=== PATIENT | male | born 1990 | race Caucasian/White ===

== ENCOUNTER 2017-12-16 19:17 | Inpatient (IN) ==
[2017-12-16] MEDS ORDERED: Diphtheria/Tetanus/Pertussis Vaccine Inj 0.5 ML Syringe IM ONE (19:30)
[2017-12-16] MEDS ORDERED: Sod Chloride 0.9% Inj 1,000 ML IV.CONT SCH (19:30)
[2017-12-16] MEDS ORDERED: ceFAZolin 2 GM Premix Inj 2 GM/50 ML PIGGYBACK IV.SIG ONE (19:30)
[2017-12-16] MEDS ORDERED: Morphine Inj 4 MG/ML Vial IV.PUSH ONE (19:30)
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
[2017-12-16] MEDS ORDERED: HYDROmorphone PF Inj 2 MG/ML Vial IV.PUSH ONE (21:09)
[2017-12-16] MEDS ORDERED: Sod Chloride 0.9% Inj 1,000 ML IV.SIG SCH (21:15)
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
[2017-12-16] MEDS ORDERED: Ketorolac Inj 30 MG/ML (IVP) Vial IV.PUSH PRN (21:23)
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
[2017-12-16 21:27] LABS: Baso # (Auto) 0.2 th/mm3 (0.0-0.2); Baso % (Auto) 0.6 % (0.0-2.0); Eos % (Auto) 0.1 % (0.0-4.0); Hematocrit 39.9 % (39.0-51.0); Hemoglobin 14.3 gm/dL (13.0-17.0); Lymph # (Auto) 1.5 th/mm3 (1.0-4.8); Lymph % (Auto) 5.9 % (9.0-44.0); Mean Corpuscular HGB Conc 35.8 % (32.0-36.0); Mean Corpuscular Hemoglobin 30.7 pg (27.0-34.0); Mean Corpuscular Volume 85.9 fL (80.0-100.0); Mean Platelet Volume 8.2 fL (7.0-11.0); Mono # (Auto) 1.6 th/mm3 (0.0-0.9); Mono % (Auto) 6.1 % (0.0-8.0); Neut # (Auto) 22.5 th/mm3 (1.8-7.7); Neut % (Auto) 87.3 % (16.0-70.0); Platelet Count 257 th/mm3 (150-450); Red Blood Count 4.64 mil/mm3 (4.50-5.90); Red Cell Distribution Width 12.8 % (11.6-17.2); White Blood Count 25.9 th/mm3 (4.0-11.0)
--- NOTE | 2017-12-16 21:28 | ECG ---
Date Performed: 12/16/2017 Time Performed: 19:32:26 PTAGE: 27 years EKG: SINUS TACHYCARDIA ABNORMAL RHYTHM ECG NO PREVIOUS TRACING DOCTOR: Prince Macias Interpretating Date/Time 12/16/2017 21:27:49
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
[2017-12-16 21:40] LABS: Activated Partial Thrombo Time 21.9 sec (24.3-30.1); INR 1.1 Ratio
[2017-12-16 22:03] LABS: Anion Gap 9 meq/L (5-15); Blood Urea Nitrogen 11 mg/dL (7-18); Calcium 7.3 mg/dL (8.5-10.1); Carbon Dioxide 21.7 meq/L (21.0-32.0); Chloride 110 meq/L (98-107); Glomerular Filtration Rate 73 mL/min (>89); Glucose,Random 143 mg/dL (74-106); Potassium 3.7 meq/L (3.5-5.1); Sodium 141 meq/L (136-145)
[2017-12-16 22:42] LABS: Total Protein 6.3 g/dL (6.4-8.2)
[2017-12-16] MEDS: Docusate Sodium 100 MG Capsule PO SCH (22:52)
[2017-12-16] MEDS: Morphine Inj 4 MG/ML Vial IV.PUSH PRN ×2 (22:56→23:14)
[2017-12-16] MEDS: Sod Chloride 0.9% Inj 1,000 ML IV.CONT SCH (23:15)
[2017-12-17] MEDS ORDERED: HYDROmorphone PF Inj 2 MG/ML Vial IV.PUSH PRN ×2 (03:20→06:16)
[2017-12-17] MEDS ORDERED: Chlorhexidine Gluconate 2% 1 Pack (2 Cloths) TOPICAL SCH (04:00)
[2017-12-17] MEDS ORDERED: Chlorhexidine Gluconate 2% 1 Pack (2 Cloths) TOPICAL PRN (04:00)
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
[2017-12-17] MEDS: Ketorolac Inj 30 MG/ML (IVP) Vial IV.PUSH SCH ×3 (06:35→18:11)
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
[2017-12-17] MEDS: Sod Chloride 0.9% Inj 1,000 ML IV.CONT SCH ×2 (08:13→18:50)
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
[2017-12-17] MEDS ORDERED: Enoxaparin Inj 40 MG/0.4 ML Syringe SQ ONE (09:00)
[2017-12-17] MEDS: Lidocaine 5% Patch T-DERMAL SCH (09:05)
[2017-12-17] MEDS: Docusate Sodium 100 MG Capsule PO SCH ×2 (09:05→20:53)
[2017-12-17] MEDS: Methocarbamol 500 MG Tablet PO SCH ×3 (09:08→21:43)
[2017-12-18] MEDS: Ketorolac Inj 30 MG/ML (IVP) Vial IV.PUSH SCH ×4 (00:14→18:32)
[2017-12-18] MEDS: Sod Chloride 0.9% Inj 1,000 ML IV.CONT SCH ×3 (01:13→14:25)
[2017-12-18 04:54] LABS: Baso # (Auto) 0.1 th/mm3 (0.0-0.2); Baso % (Auto) 0.6 % (0.0-2.0); Eos # (Auto) 0.3 th/mm3 (0.0-0.4); Eos % (Auto) 2.8 % (0.0-4.0); Hematocrit 37.1 % (39.0-51.0); Hemoglobin 12.6 gm/dL (13.0-17.0); Lymph # (Auto) 2.4 th/mm3 (1.0-4.8); Lymph % (Auto) 26.1 % (9.0-44.0); Mean Corpuscular HGB Conc 34.1 % (32.0-36.0); Mean Corpuscular Hemoglobin 29.9 pg (27.0-34.0); Mean Corpuscular Volume 87.9 fL (80.0-100.0); Mean Platelet Volume 7.9 fL (7.0-11.0); Mono # (Auto) 0.6 th/mm3 (0.0-0.9); Neut % (Auto) 64.5 % (16.0-70.0); Platelet Count 182 th/mm3 (150-450); Red Blood Count 4.22 mil/mm3 (4.50-5.90); Red Cell Distribution Width 12.7 % (11.6-17.2); White Blood Count 9.3 th/mm3 (4.0-11.0)
[2017-12-18 05:04] LABS: Anion Gap 9 meq/L (5-15); Blood Urea Nitrogen 7 mg/dL (7-18); Calcium 7.9 mg/dL (8.5-10.1); Carbon Dioxide 24.2 meq/L (21.0-32.0); Chloride 110 meq/L (98-107); Glomerular Filtration Rate Greater Than 89 mL/min (>89); Glucose,Random 102 mg/dL (74-106); Sodium 143 meq/L (136-145)
[2017-12-18] MEDS: Methocarbamol 500 MG Tablet PO SCH ×2 (05:38→13:19)
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
--- NOTE | 2017-12-18 06:47 | P.PNOP ---
Subjective Interval history: Still complains of left hip pain. States that his left arm is continuing to improve Physical Exam Vital signs: Vital Signs 12/17/17 08:00 12/17/17 09:00 12/17/17 11:07 Temperature 97.7 F Pulse Rate 85 78 Respiratory Rate 16 Blood Pressure 130/77 Pulse Oximetry 98 100 12/17/17 12:00 12/17/17 16:00 12/17/17 16:58 Temperature 97.6 F 97.6 F Pulse Rate 78 89 Respiratory Rate 14 16 Blood Pressure 126/72 134/87 Pulse Oximetry 97 98 97 12/17/17 20:00 12/18/17 00:00 12/18/17 04:00 Temperature 98.2 F 98.3 F 98.1 F Pulse Rate 97 H 87 74 Respiratory Rate 20 20 20 Blood Pressure 133/77 129/77 122/78 Pulse Oximetry 99 97 98 12/18/17 04:25 Temperature Pulse Rate 65 Respiratory Rate Blood Pressure Pulse Oximetry Intake & Output 12/17/17 12/17/17 12/18/17 06:59 18:59 06:59 Intake Total 2290 / 2290 200 / 200 2280 / 2280 Output Total 950 / 950 Balance 1340 / 1340 200 / 200 2280 / 2280 Weight 136.5 kg Intake: IV 2050 / 2050 200 / 200 1200 / 1200 NS Inj 1,000 ML @ 100 mls/hr IV 1000 / 1000 0 / 0 1000 / 1000 .CONT .Q10H [facility] Rx#:[id number] Ofirmev Inj 1,000 mg In 100 ml 200 / 200 200 / 200 @ 400 mls/hr IV.SIG Q6H [facility] Rx# :[id number] NS Inj 1,000 ML @ Wide Open IV. 1000 / 1000 SIG BOLUS [facility] Rx#:[id number] Ancef 2 GM Premix Inj 2 gm In 50 / 50 50 ml @ 100 mls/hr IV.SIG ONCE ONE Rx#:[id number] Oral 240 / 240 1080 / 1080 Output: Urine 950 / 950 Other: # Voids 2 Date of Last Bowel Movement 12/16/17 12/16/17 12/16/17 Weight On Admission 117.934 kg Narrative: Left upper extremity: Clean dry dressings intact. Intact sensation of her radial ulnar median nerve distributions with good capillary refills. Left lower extremity: Skin intact. Pain with movement of hip. Mild tenderness with range of motion of knee. Distally intact sensation with active dorsiflexion and plantarflexion of the foot Results - Labs CBC & Chem 7: 12/18/17 03:45 12/18/17 03:45 Laboratory Results - last 24 hr 12/18/17 12/18/17 03:45 03:45 WBC 9.3 RBC 4.22 L Hgb 12.6 L Hct 37.1 L MCV 87.9 MCH 29.9 MCHC 34.1 RDW 12.7 Plt Count 182 MPV 7.9 Neut % (Auto) 64.5 Lymph % (Auto) 26.1 [place] % (Auto) 6.0 Eos % (Auto) 2.8 Baso % (Auto) 0.6 Neut # (Auto) 6.0 Lymph # (Auto) 2.4 [place] # (Auto) 0.6 Eos # (Auto) 0.3 Baso # (Auto) 0.1 WBC Differential . Differential Comment Auto diff final Sodium 143 Potassium 4.0 Chloride 110 H Carbon Dioxide 24.2 Anion Gap 9 BUN 7 Creatinine 0.81 Estimated GFR Greater than 89 Random Glucose 102 Calcium 7.9 L - Imaging Impressions Hip CT 12/17/17 00:00 CONCLUSION: Left acetabular fractures and fracturing through the superior and inferior pubic rami. Chest X-Ray 12/17/17 06:00 CONCLUSION: No acute cardiopulmonary process. Chest X-Ray 12/18/17 06:00 CONCLUSION: 1. No acute abnormality or significant interval change. Assessment and Plan - Assessment and Plan Left acetabulum fracture N.p.o. Surgery this morning for ORIF of left acetabulum Sign consents Bedrest nonweightbearing left lower extremity Left elbow lacerations Daily dressing changes and weightbearing as tolerated
[2017-12-18] MEDS ORDERED: SODIUM CHLOR 0.9% IV.SIG SCH (07:00)
[2017-12-18] MEDS ORDERED: TRANEXAMIC ACID IV.SIG SCH (07:00)
[2017-12-18] MEDS ORDERED: Heparin - SQ 10,000 UNITS/ML Vial ONE (07:02)
[2017-12-18] MEDS ORDERED: Phenylephrine/NS 1000 MCG/10ML Syringe IV.PUSH ONE (08:00)
[2017-12-18] MEDS ORDERED: Esmolol Bolus Inj 100 MG/10 ML Vial IV.PUSH ONE (08:00)
[2017-12-18] MEDS ORDERED: Lidocaine PF 1% Inj 5 ML Syringe OTHER ONE (08:00)
[2017-12-18] MEDS ORDERED: Sugammadex Inj 200 MG/2 ML Vial IV.PUSH ONE (09:19)
[2017-12-18] MEDS: Lidocaine 5% Patch T-DERMAL SCH (09:55)
[2017-12-18] MEDS: Docusate Sodium 100 MG Capsule PO SCH (09:55)
[2017-12-18] MEDS ORDERED: Morphine Inj 4 MG/ML Vial IV.PUSH PRN (10:26)
[2017-12-18] MEDS ORDERED: Post-op Orders (for Pharmacy) OTHER STA (10:26)
[2017-12-18] MEDS ORDERED: Vancomycin Consult Pharmacy 1 EACH OTHER SCH (10:30)
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
--- NOTE | 2017-12-18 10:59 | XR ---
EXAM DATE: 12/18/2017 12:00 AM EDT AGE/SEX: 27 years / Male INDICATIONS: Post-op ORIF left acetabulum. CLINICAL DATA: This is the patient's subsequent encounter. Patient reports that signs and symptoms h ave been present for 4 - 6 days and indicates a pain score of Nonresponsive. MEDICAL/SURGICAL HISTORY: Non-responsive. Non-responsive. COMPARISON: No prior exams available for comparison. FINDINGS: Plate with screws is seen bridging the acetabular fracture in anatomic alignment. CONCLUSION: Anatomic alignment. Electronically signed by: Logan Tesfaye MD 12/18/2017 10:58 AM EDT
[2017-12-18] MEDS ORDERED: *Meperidine Inj 25 MG/ML Vial PERIprocedural Use ONLY ONE (11:13)
[2017-12-18] MEDS ORDERED: fentaNYL Citrate Inj 100 MCG/2 ML Ampul ONE (11:15)
[2017-12-18] MEDS ORDERED: *morphine SULFATE 4 MG/ML PERIprocedure ONLY ONE ×2 (11:16→11:25)
[2017-12-18] MEDS ORDERED: Metoprolol Tartrate 25 MG Tablet PO ONE (11:30)
[2017-12-18] MEDS ORDERED: Chlorhexidine Gluconate 2% 1 Pack (2 Cloths) TOPICAL ONE (11:30)
[2017-12-18] MEDS ORDERED: Sodium Chlor 0.9% Inj 500 ML IV.CONT ONE (11:30)
--- NOTE | 2017-12-18 11:58 | XR ---
EXAM DATE: 12/18/2017 11:24 AM EDT AGE/SEX: 27 years / Male INDICATIONS: Evaluate central line placement. CLINICAL DATA: This is the patient's initial encounter. Patient reports that signs and symptoms have been present for 1 day and indicates a pain score of 0/10. MEDICAL/SURGICAL HISTORY: None. None. COMPARISON: [facility] [place] 1[place] SING[place], 12/18/2017. . FINDINGS: Minimal parenchymal changes left base. Right lung clear. Left subclavian line tip is in the innominate vein SVC junction. No pneumothorax. CONCLUSION: Left line as above without pneumothorax. Tip in innominate vein SVC junction. Electronically signed by: Logan Tesfaye MD 12/18/2017 11:56 AM EDT
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
[2017-12-18] MEDS: ceFAZolin Inj 2,000 MG in Sodium Chlor 0.9% Inj 80 ML IV.SIG SCH (17:00)
[2017-12-18] MEDS: Senna/Docusate Sodium 8.6/50 MG Tablet PO SCH (20:23)
[2017-12-18] MEDS: Vancomycin Inj 1,750 MG in Sodium Chlor 0.9% Inj 500 ML IV.SIG SCH (21:59)
[2017-12-19] MEDS: Sod Chloride 0.9% Inj 1,000 ML IV.CONT SCH
[2017-12-19] MEDS: Ketorolac Inj 30 MG/ML (IVP) Vial IV.PUSH SCH ×4 (00:50→17:18)
[2017-12-19] MEDS: ceFAZolin Inj 2,000 MG in Sodium Chlor 0.9% Inj 80 ML IV.SIG SCH ×3 (00:50→17:18)
[2017-12-19 06:33] LABS: Hematocrit 33.9 % (39.0-51.0); Hemoglobin 11.7 gm/dL (13.0-17.0)
--- NOTE | 2017-12-19 06:36 | P.PNOP ---
Subjective Interval history: POD 1 s/p ORIF left acetabulum doing well. states pain but controlled. reports numbness to anterior thigh Physical Exam Vital signs: Vital Signs 12/18/17 11:07 12/18/17 11:15 12/18/17 11:30 Temperature 97.8 F 97.6 F 97.6 F Pulse Rate 107 H 110 H 102 H Respiratory Rate 14 14 14 Blood Pressure 133/77 140/92 H 148/98 H Pulse Oximetry 91 L 92 L 95 12/18/17 11:45 12/18/17 12:00 12/18/17 12:03 Temperature 97.6 F 97.6 F Pulse Rate 100 H 106 H Respiratory Rate 14 14 14 Blood Pressure 130/81 140/91 H Pulse Oximetry 95 95 12/18/17 12:15 12/18/17 15:39 12/18/17 20:00 Temperature 97.6 F 98.0 F 98.5 F Pulse Rate 102 H 90 113 H Respiratory Rate 14 24 17 Blood Pressure 136/78 126/78 149/78 H Pulse Oximetry 95 99 93 L 12/19/17 00:00 Temperature 98.6 F Pulse Rate 102 H Respiratory Rate 18 Blood Pressure 130/83 Pulse Oximetry 95 Intake & Output 12/18/17 12/18/17 12/19/17 06:59 18:59 06:59 Intake Total 2280 / 2280 1800 / 1800 Output Total 2350 / 2350 2800 / 2800 Balance 2280 / 2280 -550 / -550 -2800 / -2800 Weight 136.5 kg Intake: IV 1200 / 1200 100 / 100 NS Inj 1,000 ML @ 100 mls/hr IV 1000 / 1000 .CONT .Q10H [facility] Rx#:[id number] Ofirmev Inj 1,000 mg In 100 ml 200 / 200 @ 400 mls/hr IV.SIG Q6H [facility] Rx# :[id number] Cyklokapron Inj 2,047.5 MG In 0 / 0 NS Inj 100 ML @ 200 mls/hr IV. SIG ONCE [facility] Rx#:[id number] Ancef Inj 2,000 MG In NS Inj 80 100 / 100 ML @ 200 mls/hr IV.SIG Q8H [facility] Rx#:[id number] Oral 1080 / 1080 0 / 0 Anesthesia Amount 1700 / 1700 Output: Urine 350 / 350 Estimated Blood Loss 600 / 600 Urine Amount (Catheter) 1400 / 1400 2800 / 2800 Indwelling Urethral Catheter 1400 / 1400 2800 / 2800 Other: # Voids 1,550 1,550 Date of Last Bowel Movement 12/16/17 12/16/17 Narrative: LLE: dressings clean and dry. intact. +CKS. NVI distally - Urinary Catheter Management Indwelling Urethral Catheter Cath placed during this visit: yes Reason for continuing: Acute urinary retention Insertion date: 12/18/17 Insertion time: 10:30 Results - Labs CBC & Chem 7: 12/19/17 04:57 12/18/17 03:45 Laboratory Results - last 24 hr 12/18/17 12/19/17 07:18 04:57 Hgb 11.7 L Hct 33.9 L MTS Gel Crossmatch See Detail - Imaging Impressions Pelvis X-Ray 12/18/17 00:00 CONCLUSION: Anatomic alignment. Chest X-Ray 12/18/17 06:00 CONCLUSION: 1. No acute abnormality or significant interval change. Chest X-Ray 12/18/17 11:24 CONCLUSION: Left line as above without pneumothorax. Tip in innominate vein SVC junction. Assessment and Plan - Assessment and Plan 1) Left Acetabulum Fx s/p ORIF - POD 1 -TTWB -posterior hip precautions -CKS while in bed -daily dressing changes POD 2 with xeroform/primapore. -DVT prophylaxis -will plan for home with [facility] later this week -f/u with Anish or [facility] in 2 weeks [facility] Prescription Drug Monitoring Database has been queried and verified prior to prescribing the controlled substance. Acute pain exception. This patient has normal, predicted, physiological, and time limited response to an adverse mechanical stimulus associated with surgery, trauma, or acute illness as described in my notes. There is a lack of alternative treatment options other than to include the prescribed narcotic treatment for this condition.
--- NOTE | 2017-12-19 06:38 | P.DCO ---
- Physical Therapy Physical Therapy: Gait training, Safety evaluation Hip: Hip fracture, Protocol: Left, Posterior hip precautions Canvas Knee Splint: Remove only with PT Left Lower Extremity Weight Bearing: Toe touch weight bearing - Nursing Dressing changes: Daily dressing change, Xeroform, Coverderm/Primapore - Certification Need for Home Health services: I have seen patient Cecilio Brown on 12/19/17. My clinical findings support the need for the requested home health care services because: Need for Home Health Services: Limited mobility due to disease progression Homebound Certification: I certify that my clinical findings support that this patient is homebound because: Homebound Certification: Post-op weakness
[2017-12-19] MEDS ORDERED: HYDROmorphone PF Inj 2 MG/ML Vial IV.PUSH PRN (06:39)
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
[2017-12-19] MEDS: Senna/Docusate Sodium 8.6/50 MG Tablet PO SCH (08:46)
[2017-12-19] MEDS: Indomethacin 75 MG ER Capsule PO SCH (08:46)
[2017-12-19] MEDS: Lidocaine 5% Patch T-DERMAL SCH (08:46)
[2017-12-19] MEDS: Vancomycin Inj 1,750 MG in Sodium Chlor 0.9% Inj 500 ML IV.SIG SCH ×2 (10:53→21:17)
[2017-12-19] MEDS: Enoxaparin Inj 30 MG/0.3 ML Syringe SQ SCH (10:53)
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
[2017-12-20] MEDS: ceFAZolin 2 GM Premix Inj 2 GM/50 ML PIGGYBACK IV.SIG SCH ×2 (00:59→07:39)
[2017-12-20] MEDS: Ketorolac Inj 30 MG/ML (IVP) Vial IV.PUSH SCH ×4 (00:59→17:37)
--- NOTE | 2017-12-20 06:28 | P.PNOP ---
Subjective Interval history: POD 2 s/p ORIF left acetabulum doing well. improving. out of bed yesterday. still has antonio in Physical Exam Vital signs: Vital Signs 12/19/17 08:00 12/19/17 09:00 12/19/17 09:39 Temperature 97.9 F Pulse Rate 90 93 H Respiratory Rate 18 Blood Pressure 123/73 Pulse Oximetry 99 97 12/19/17 12:00 12/19/17 16:00 12/19/17 20:00 Temperature 97.4 F L 97.7 F 98.2 F Pulse Rate 78 87 96 H Respiratory Rate 18 16 18 Blood Pressure 137/78 121/77 154/89 H Pulse Oximetry 96 95 99 12/20/17 00:00 12/20/17 04:00 Temperature 98.5 F 97.0 F L Pulse Rate 97 H 87 Respiratory Rate 18 18 Blood Pressure 141/90 H 125/76 Pulse Oximetry 98 99 Intake & Output 12/19/17 12/19/17 12/20/17 06:59 18:59 06:59 Intake Total 200 / 200 1235.0 / 1235.0 Output Total 2800 / 2800 850 / 850 Balance -2600 / -2600 385.0 / 385.0 Intake: IV 200 / 200 1235.0 / 1235.0 Vancomycin Inj 1,750 MG In NS 1035.0 / 1035.0 Inj 500 ML @ 250 mls/hr IV.SIG Q12H [facility] Rx#:[id number] Ancef Inj 2,000 MG In NS Inj 80 200 / 200 200 / 200 ML @ 200 mls/hr IV.SIG Q8H [facility]OSE Rx#:[id number] Output: Urine Amount (Catheter) 2800 / 2800 850 / 850 Indwelling Urethral Catheter 2800 / 2800 850 / 850 Other: Date of Last Bowel Movement 12/16/17 Narrative: LLE: dressings clean and dry. intact. NVI distally. +CKS - Urinary Catheter Management Indwelling Urethral Catheter Cath placed during this visit: yes Reason for continuing: Acute urinary retention Insertion date: 12/18/17 Insertion time: 10:30 Results - Labs CBC & Chem 7: 12/19/17 04:57 12/18/17 03:45 Laboratory Results - last 24 hr 12/18/17 12/19/17 07:18 04:57 Hgb 11.7 L Hct 33.9 L MTS Gel Crossmatch See Detail - Imaging Impressions Chest X-Ray 12/19/17 06:00 CONCLUSION: 1. Minimal left basilar airspace disease, likely atelectasis. Assessment and Plan - Problem List (1) Acetabulum fracture, left Code(s): S32.402A - Unspecified fracture of left acetabulum, initial encounter for closed fracture Status: Acute Qualifiers: Encounter type: initial encounter Sublocation of acetabulum: other portion of acetabulum Fracture type: closed Qualified Code(s): S32.492A - Other specified fracture of left acetabulum, initial encounter for closed fracture - Assessment and Plan 1) Left Acetabulum Fx s/p ORIF - POD 2 -TTWB -posterior hip precautions -CKS while in bed -daily dressing changes POD 2 with xeroform/primapore. -DVT prophylaxis -will plan for home with [facility] today or tomorrow depending on ability to ambulate with walker -D/C antonio today -f/u with [facility] or [facility] in 2 weeks [facility] Prescription Drug Monitoring Database has been queried and verified prior to prescribing the controlled substance. Acute pain exception. This patient has normal, predicted, physiological, and time limited response to an adverse mechanical stimulus associated with surgery, trauma, or acute illness as described in my notes. There is a lack of alternative treatment options other than to include the prescribed narcotic treatment for this condition.
[2017-12-20] MEDS: Senna/Docusate Sodium 8.6/50 MG Tablet PO SCH ×3 (06:47→21:29)
[2017-12-20] MEDS: Lidocaine 5% Patch T-DERMAL SCH (08:27)
[2017-12-20] MEDS: Indomethacin 75 MG ER Capsule PO SCH (08:28)
[2017-12-20] MEDS: Vancomycin Inj 1,750 MG in Sodium Chlor 0.9% Inj 500 ML IV.SIG SCH (09:56)
[2017-12-20] MEDS: Enoxaparin Inj 30 MG/0.3 ML Syringe SQ SCH (09:56)
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
[2017-12-21] MEDS: Ketorolac Inj 30 MG/ML (IVP) Vial IV.PUSH SCH ×5 (01:26→18:27)
--- NOTE | 2017-12-21 06:54 | P.PNOP ---
Subjective Interval history: Resting comfortably. States that he is getting around well with physical therapy Physical Exam Vital signs: Vital Signs 12/20/17 07:37 12/20/17 08:00 12/20/17 10:44 Temperature 98.6 F Pulse Rate 78 Respiratory Rate 20 20 18 Blood Pressure 140/68 Pulse Oximetry 96 12/20/17 12:00 12/20/17 16:00 12/20/17 19:02 Temperature 98.8 F 98.5 F 98.7 F Pulse Rate 85 80 87 Respiratory Rate 20 20 18 Blood Pressure 127/76 128/74 135/88 Pulse Oximetry 96 96 97 12/20/17 21:59 12/21/17 00:39 12/21/17 04:11 Temperature 97.9 F Pulse Rate 99 H Respiratory Rate 18 18 16 Blood Pressure 137/95 H Pulse Oximetry 97 12/21/17 04:12 12/21/17 06:21 Temperature Pulse Rate Respiratory Rate 16 16 Blood Pressure Pulse Oximetry Intake & Output 12/20/17 12/20/17 12/21/17 06:59 18:59 06:59 Intake Total 50 / 50 1087.5 / 1087.5 480 / 480 Output Total 1500 / 1500 1300 / 1300 Balance -1450 / -1450 -212.5 / -212.5 480 / 480 Weight 136.5 kg Intake: IV 50 / 50 567.5 / 567.5 Vancomycin Inj 1,750 MG In NS 517.5 / 517.5 Inj 500 ML @ 250 mls/hr IV.SIG Q12H AMBROSE Rx#:[id number] Ancef 2 GM Premix Inj 2 gm In 50 / 50 50 / 50 50 ml @ 100 mls/hr IV.SIG Q8H AMBROSE Rx#:[id number] Oral 520 / 520 480 / 480 Output: Urine 1500 / 1500 1300 / 1300 Other: # Voids 3 2 Date of Last Bowel Movement 12/20/17 12/20/17 # Bowel Movements 0 0 Narrative: Left lower extremity: Clean dry dressings intact. Compartments soft. Moderate tenderness with range of motion of the hip. Knee immobilizer in place. Distally intact sensation with active dorsiflexion and plantar flexion of foot. - Urinary Catheter Management Indwelling Urethral Catheter Cath placed during this visit: yes, but has since been removed by the nurse Reason for continuing: Decision to DC catheter Insertion date: 12/18/17 Insertion time: 10:30 Removal date: 12/20/17 Removal time: 06:30 Results - Labs CBC & Chem 7: 12/19/17 04:57 12/18/17 03:45 - Procedures . Assessment and Plan - Problem List (1) Acetabulum fracture, left Code(s): S32.402A - Unspecified fracture of left acetabulum, initial encounter for closed fracture Status: Acute Qualifiers: Encounter type: initial encounter Sublocation of acetabulum: other portion of acetabulum Fracture type: closed Qualified Code(s): S32.492A - Other specified fracture of left acetabulum, initial encounter for closed fracture - Assessment and Plan 1) Left Acetabulum Fx s/p ORIF - POD 3 -TTWB -posterior hip precautions, no active leg lifts -CKS while in bed -daily dressing changes xeroform/primapore. -DVT prophylaxis -will plan for home with [facility] today or tomorrow depending on ability to ambulate with walker -D/C antonio today -f/u with [facility] or [facility] in 2 [facility] [place] Database has been queried and verified prior to prescribing the controlled substance. Acute pain exception. This patient has normal, predicted, physiological, and time limited response to an adverse mechanical stimulus associated with surgery, trauma, or acute illness as described in my notes. There is a lack of alternative treatment options other than to include the prescribed narcotic treatment for this condition.
[2017-12-21] MEDS: Senna/Docusate Sodium 8.6/50 MG Tablet PO SCH (08:39)
[2017-12-21] MEDS: Lidocaine 5% Patch T-DERMAL SCH (08:39)
[2017-12-21] MEDS: Indomethacin 75 MG ER Capsule PO SCH (08:39)
[2017-12-21 09:19] VITALS: RESP 20
[2017-12-21] MEDS: Enoxaparin Inj 30 MG/0.3 ML Syringe SQ SCH (10:17)
[2017-12-21 12:58] VITALS: TEMP 97.9; O2SAT 96
[2017-12-21 20:18] VITALS: BP 113/62; PULSE 92
== END 2017-12-21 21:18 | disposition home or self-care (01) ==
LOC: NEPD 19:17 → NEDA 21:28 → N06 22:42
PROVIDERS: ADMIT Surgery; ATTEND Surgery